=== PATIENT | female | born 1960 | race Caucasian/White ===

== ENCOUNTER 2019-02-14 09:59 | Emergency (ER) | payer MEDICAID ==
[~2019-02-14] VITALS: Wt 75.1 kg
[~2019-02-14 09:59] MED LIST: LOSA50TA14 PO; OMEP20CA16 PO; SIMV20TA PO
--- NOTE | 2019-02-14 10:54 | ERD ---
ER Documentation Chief Complaint Chief Complaint chemo pt with sob and dizziness and body pain for the past few days. HPI 58-year-old female with history of hypertension, hyperlipidemia and breast cancer presents to the ED with multiple complaints. She is concerned that during the course of the night her blood pressure was high. She has mild, gradual onset, generalized, pressure-like headache no visual changes, focal weakness or numbness. No neck or back pain. Dizziness which she describes as lightheadedness especially when she stands. Denies chest pain or palpitations. No abdominal pain, nausea, vomiting diarrhea or constipation. No dysuria, polyuria or flank pain. Generalized malaise and body aches but no fevers or chills. Her last chemotherapy was 9018. ROS All systems reviewed and are negative except as per history of present illness. Medications Home Meds Reported Medications Omeprazole* (Omeprazole*) 20 Mg Capsule.dr, 20 MG PO DAILY, #30 CAP 12/31/18 Losartan Potassium* (Losartan Potassium*) 50 Mg Tablet, 50 MG PO DAILY, TAB 12/31/18 Simvastatin* (Zocor*) 20 Mg Tablet, 20 MG PO QHS, #30 TAB 12/31/18 Allergies Allergies: Coded Allergies: No Known Allergy (Unverified , 02/14/19) PMhx/Soc Reviewed in chart. As per HPI. History of Surgery: Yes (C/ S X 2) Anesthesia Reaction: No Hx Neurological Disorder: No Hx Respiratory Disorders: No Hx Cardiac Disorders: Yes (HTN, HLP) Hx Psychiatric Problems: No Hx Miscellaneous Medical Probl: Yes (Breast cancer) Hx Alcohol Use: No Hx Substance Use: No Hx Tobacco Use: No FmHx No sudden cardiac or stroke Physical Exam Vitals Vital Signs Date Temp Pulse Resp B/P (MAP) Pulse Ox O2 O2 Flow FiO2 Time Delivery Rate 02/14/19 98.2 64 15 116/64 98 Room Air 14:57 (81) 02/14/19 72 18 132/60 98 Room Air 13:27 (84) 02/14/19 98.0 76 18 161/69 97 10:06 (99) Physical Exam Const: Alert, anxious Head: Atraumatic Eyes: Normal Conjunctiva. Pupils equal reactive light, extraocular wounds are intact ENT: Normal External Ears, Nose and Mouth. Mucous membranes are moist. No oral thrush. Neck: Full range of motion. No meningismus. No JVD. No lymphadenopathy or tenderness. Resp: Breath sounds are equal and clear to auscultation bilaterally. No rales rhonchi or wheezes. Cardio: Regular rate and rhythm, no murmurs Chest Wall: Port-A-Cath site nontender without erythema or induration. Abd: Soft, obese, non tender, non distended. No rebound or guarding. Normal bowel sounds Skin: No petechiae or rashes Back: No midline or flank tenderness Ext: No cyanosis, or edema Neur: Awake and alert Psych: Anxious but not depressed. Result Diagram: 02/14/19 1129 02/14/19 1129 Results 24 hrs Laboratory Tests Test 02/14/19 11:29 White Blood Count 3.5 10^3/ul Red Blood Count 3.45 10^6/ul Hemoglobin 9.7 g/dl Hematocrit 29.8 % Mean Corpuscular Volume 86.4 fl Mean Corpuscular Hemoglobin 28.1 pg Mean Corpuscular Hemoglobin Concent 32.6 g/dl Red Cell Distribution Width 15.8 % Platelet Count 222 10^3/UL Mean Platelet Volume 10.3 fl Immature Granulocytes % 1.400 % Neutrophils % % Segmented Neutrophils % (Manual) 37 % Band Neutrophils % (Manual) 5 % Lymphocytes % % Lymphocytes % (Manual) 49 % Reactive Lymphocytes % (Manual) 2 % Monocytes % % Monocytes % (Manual) 7 % Eosinophils % % Basophils % % Nucleated Red Blood Cells % 0.0 /100WBC Immature Granulocytes # 0.050 10^3/ul Neutrophils # 10^3/ul Neutrophils # (Manual) 1.3 10^3/ul Band Neutrophils # 0.1 10^3/ul Lymphocytes (Manual) 1.7 10^3/ul Lymphocytes # 10^3/ul Reactive Lymphocytes # 0.0 10^3/ul Monocytes # 10^3/ul Monocytes # (Manual) 0.2 10^3/ul Eosinophils # 10^3/ul Basophils # 10^3/ul Nucleated Red Blood Cells # 10^3/ul Platelet Estimate NORMAL Anisocytosis 1+ Microcytosis 1+ Urine Color STRAW Urine Clarity CLEAR Urine pH 6.0 Urine Specific [place] 1.002 Urine Ketones NEGATIVE mg/dL Urine Nitrite NEGATIVE mg/dL Urine Bilirubin NEGATIVE mg/dL Urine Urobilinogen NEGATIVE mg/dL Urine Leukocyte Esterase NEGATIVE Dahlia/ul Urine Hemoglobin NEGATIVE mg/dL Urine Glucose NEGATIVE mg/dL Urine Total Protein NEGATIVE mg/dl Sodium Level 143 mmol/L Potassium Level 4.1 mmol/L Chloride Level 109 mmol/L Carbon Dioxide Level 27 mmol/L Anion Gap 7 Blood Urea Nitrogen 5 mg/dl Creatinine 0.46 mg/dl Est Glomerular Filtrat Rate mL/min > 60 mL/min Glucose Level 93 mg/dl Calcium Level 9.2 mg/dl Total Bilirubin 0.4 mg/dl Direct Bilirubin 0.00 mg/dl Indirect Bilirubin 0.4 mg/dl Aspartate Amino Transf (AST/SGOT) 63 IU/L Alanine Aminotransferase (ALT/SGPT) 54 IU/L Alkaline Phosphatase 86 IU/L Total Protein 6.4 g/dl Albumin 3.5 g/dl Globulin 2.90 g/dl Albumin/Globulin Ratio 1.20 Procedures/MDM DOCUMENTS REVIEWED: ED nurse, prior records EKG: Time: 1426. Sinus rhythm. Ventricular rate 67, normal [place] and QRS intervals. No acute ST segment elevation or depression. No axis deviation or ectopy. My Interpretation: Normal EKG IMAGING: Chest AP portable. Cardiac silhouette is normal. The costophrenic angles are clear. No effusions or infiltrates. No abnormalities of the bony thorax. My interpretation. PROCEDURE: CT head CLINICAL INDICATION: Headache. History of breast cancer. TECHNIQUE: Contiguous 2.5 mm axial images were obtained from the vertex to the skull base. No intravenous contrast was administered. The calculated dose length product (DLP) = 554.95 mGy-cm. The CTDlvol = 39.54 mGy. One or more of the following dose reduction techniques were used: Automated exposure control, adjustment of the mA and or KV according to patient size, or use of iterative reconstruction technique. DICOM images are available. COMPARISON: None FINDINGS: There is no evidence of acute intracranial hemorrhage or acute territorial infarct. No mass or mass effect is seen on this noncontrast study. The ventricles and cisterns are normal in size and configuration. The patel-white matter differentiation is within normal limits. The visualized paranasal sinuses are normally aerated. The bony calvarium is unremarkable IMPRESSION: Unremarkable unenhanced CT of the brain RPTAT: .Demian Anne MD, MD Date Time Electronically viewed and signed by .Demian Anne MD, MD on 02/14/2019 11:23 .W/ MEDICAL DECISION MAKIN-year-old female with history of hypertension, hyperlipidemia and breast cancer presents to the ED with multiple complaints she is most concerned about her blood pressure was consistently high throughout the night. CBC reveals mild leukopenia and anemia but no thrombocytopenia. Chemistry is negative for renal insufficiency or electrolyte abnormalities. CT of the brain performed to evaluate for metastatic disease, mass, ischemia and hemorrhage is unremarkable. EKG is negative for ischemia or dysrhythmia. Sorted hypertension exacerbated by underlying anxiety resolved without treatment. No evidence of hypertensive urgency or emergency. No dehydration or electrolyte abnormalities. Mild gradual onset, non-maximal headache. History not consistent with meningitis, encephalitis or subarachnoid hemorrhage. CT of the brain is negative and lumbar puncture is not indicated. Stable for discharge with precautionary instructions and outpatient follow-up as counseled. Counseled patient and family regarding diagnostic workup, diagnosis and need for followup. Understands to return to ED if symptoms recur, worsen or any other concerns. Departure Diagnosis: Primary Impression: Multiple complaints Additional Impressions: Accelerated hypertension Breast cancer Breast location: unspecified site of breast Estrogen receptor status: unspecified Patient sex: female Laterality: right Qualified Codes: C50 .911 - Malignant neoplasm of unspecified site of right female breast Headache Headache type: unspecified Headache chronicity pattern: episodic headache Intractability: not intractable Qualified Codes: R51 - Headache Anxiety about health Condition: Stable (Improved) FAUSTO CARDENAS MD Feb 14, 2019 10:54
[2019-02-14 14:57] VITALS: BP 116/64; PULSE 64; RESP 15
== END 2019-02-14 14:58 | disposition home or self-care (01) ==
LOC: E/R 09:59
DX: I10 Essential (primary) hypertension (principal); C50.911 Malignant neoplasm of unspecified site of right female breast; R42 Dizziness and giddiness
CPT/HCPCS: 36415; 70450; 71045; 80053; 81003; 85025; 93005; Z7502

== ENCOUNTER 2019-02-22 05:24 | Emergency (ER) | payer MEDICAID ==
[~2019-02-22] VITALS: Ht 157.5 cm; Wt 71.2 kg
[2019-02-22 05:30] VITALS: Ht 157.5 cm; Wt 71.2 kg
[2019-02-22] MEDS ORDERED: morphine 4 MG/ML VIAL IV STA (06:48)
[2019-02-22] MEDS ORDERED: ONDANSETRON 4 MG INJ IV STA (06:48)
[2019-02-22] MEDS ORDERED: ONDA4TAB14 PO (09:00)
[2019-02-22] MEDS ORDERED: IBUP-1542 PO (09:00)
[2019-02-22 09:32] VITALS: BP 97/48; PULSE 64; RESP 16
--- NOTE | 2019-02-22 12:05 | ERD ---
ER Documentation Chief Complaint Chief Complaint RUQ pain; rectal bleed; breast CA HX; tx last friday HPI Patient is a 58-year-old female with breast cancer who presents with abdominal pain. She had a right upper quadrant abdominal pain which started yesterday. The pain comes and goes. The patient has no fevers. The patient tried Tylenol. The pain is been sharp in nature. The patient has no shortness of breath. Upon review of old medical records this is the patient's third visit to the ER since December 31, 2018. ROS All systems reviewed and are negative except as per history of present illness. Medications Home Meds Active Scripts Ondansetron (Ondansetron Odt) 4 Mg Tab.rapdis, 4 MG PO Q6H PRN for NAUSEA AND/OR VOMITING, #10 TAB Prov:MYRIAM RODRIGUEZ MD 02/22/19 Ibuprofen* (Motrin*) 600 Mg Tab, 600 MG PO Q6H PRN for PAIN AND OR ELEVATED TEMP , #30 TAB Prov:MYRIAM RODRIGUEZ MD 02/22/19 Reported Medications Omeprazole* (Omeprazole*) 20 Mg Capsule.dr, 20 MG PO DAILY, #30 CAP 12/31/18 Losartan Potassium* (Losartan Potassium*) 50 Mg Tablet, 50 MG PO DAILY, TAB 12/31/18 Simvastatin* (Zocor*) 20 Mg Tablet, 20 MG PO QHS, #30 TAB 12/31/18 Allergies Allergies: Coded Allergies: No Known Allergy (Unverified , 02/14/19) PMhx/Soc History of Surgery: Yes (C/ S X 2, PORT-A-CATH PLACEMENT) Anesthesia Reaction: No Hx Neurological Disorder: No Hx Respiratory Disorders: No Hx Cardiac Disorders: Yes (HTN, HLP) Hx Psychiatric Problems: No Hx Miscellaneous Medical Probl: Yes (Breast cancer) Hx Alcohol Use: No Hx Substance Use: No Hx Tobacco Use: No Smoking Status: Never smoker FmHx Family History: diabetes Physical Exam Vitals Vital Signs Date Temp Pulse Resp B/P (MAP) Pulse Ox O2 O2 Flow FiO2 Time Delivery Rate 02/22/19 64 16 97/48 (64) 100 Room Air 09:32 02/22/19 79 14 102/61 100 Room Air 08:00 (75) 02/22/19 76 14 139/67 100 Room Air 06:50 (91) 02/22/19 98.2 94 20 122/62 98 05:30 (82) Physical Exam Const: No acute distress Head: Atraumatic Eyes: Normal Conjunctiva ENT: Normal External Ears, Nose and Mouth. Neck: Full range of motion. No meningismus. Resp: Clear to auscultation bilaterally Cardio: Regular rate and rhythm, no murmurs Abd: Soft, right upper quadrant tenderness to palpation without rebound or guarding Skin: No petechiae or rashes Back: No midline or flank tenderness Ext: No cyanosis, or edema Neur: Awake and alert Psych: Normal Mood and Affect Result Diagram: 02/22/19 0802 02/22/19 0802 Results 24 hrs Laboratory Tests Test 02/22/19 07:34 02/22/19 08:02 Urine Color YELLOW Urine Clarity CLEAR Urine pH 7.0 Urine Specific [place] 1.010 Urine Ketones NEGATIVE mg/dL Urine Nitrite NEGATIVE mg/dL Urine Bilirubin NEGATIVE mg/dL Urine Urobilinogen NEGATIVE mg/dL Urine Leukocyte Esterase NEGATIVE Dahlia/ul Urine Microscopic RBC 1 /HPF Urine Microscopic WBC 4 /HPF Urine Squamous Epithelial Cells FEW /HPF Urine Bacteria FEW /HPF Urine Mucus FEW /HPF Urine Hemoglobin NEGATIVE mg/dL Urine Glucose NEGATIVE mg/dL Urine Total Protein NEGATIVE mg/dl White Blood Count 1.8 10^3/ul Red Blood Count 3.62 10^6/ul Hemoglobin 10.0 g/dl Hematocrit 31.3 % Mean Corpuscular Volume 86.5 fl Mean Corpuscular Hemoglobin 27.6 pg Mean Corpuscular Hemoglobin Concent 31.9 g/dl Red Cell Distribution Width 15.9 % Platelet Count 220 10^3/UL Mean Platelet Volume 10.4 fl Immature Granulocytes % 5.100 % Neutrophils % % Segmented Neutrophils % (Manual) 36 % Band Neutrophils % (Manual) 9 % Lymphocytes % % Lymphocytes % (Manual) 48 % Reactive Lymphocytes % (Manual) 3 % Monocytes % % Monocytes % (Manual) 3 % Eosinophils % % Basophils % % Basophils % (Manual) 1 % Nucleated Red Blood Cells % 0.0 /100WBC Immature Granulocytes # 0.090 10^3/ul Neutrophils # 10^3/ul Neutrophils # (Manual) 0.6 10^3/ul Band Neutrophils # 0.1 10^3/ul Lymphocytes (Manual) 0.8 10^3/ul Lymphocytes # 10^3/ul Reactive Lymphocytes # 0.0 10^3/ul Monocytes # 10^3/ul Monocytes # (Manual) 0.0 10^3/ul Eosinophils # 10^3/ul Basophils # 10^3/ul Basophils # (Manual) 0.0 10^3/ul Nucleated Red Blood Cells # 10^3/ul Platelet Estimate NORMAL Giant Platelets 1 % Anisocytosis 3+ Microcytosis 3+ Ovalocytes 1+ Stomatocytes 2+ Sodium Level 139 mmol/L Potassium Level 3.8 mmol/L Chloride Level 100 mmol/L Carbon Dioxide Level 32 mmol/L Anion Gap 7 Blood Urea Nitrogen 9 mg/dl Creatinine 0.58 mg/dl Est Glomerular Filtrat Rate mL/min > 60 mL/min Glucose Level 103 mg/dl Calcium Level 9.4 mg/dl Total Bilirubin 0.5 mg/dl Direct Bilirubin 0.00 mg/dl Indirect Bilirubin 0.5 mg/dl Aspartate Amino Transf (AST/SGOT) 37 IU/L Alanine Aminotransferase (ALT/SGPT) 73 IU/L Alkaline Phosphatase 99 IU/L Troponin I < 0.012 ng/ml Total Protein 6.8 g/dl Albumin 3.9 g/dl Globulin 2.90 g/dl Albumin/Globulin Ratio 1.34 Lipase 85 U/L Current Medications Medications Dose Sig/[place] Start Time Status Last (Trade) Ordered Route PRN Stop Time Admin Dose Reason Admin Morphine 4 mg ONCE STAT 02/22/19 DC 02/22/19 Sulfate IV 06:48 02/22/19 07:35 (morphine) 06:49 Ondansetron 4 mg ONCE STAT 02/22/19 DC 02/22/19 HCl (Zofran IV 06:48 02/22/19 07:35 Inj) 06:49 Procedures/MDM Ultrasound the gallbladder read by radiology. Patient is a 58-year-old female presents with right upper quadrant abdominal pain. Laboratory studies are basically normal. Ultrasound shows gallstones but no signs of cholecystitis. At this point I doubt cholecystitis, pancreatitis, appendicitis, or bowel obstruction. I believe outpatient management is appropriate but the patient will need to follow-up closely with her primary doctor within 24-48 hours. She can return sooner for any worsening symptoms. She was given copies of laboratory studies and imaging test prior to discharge. Departure Diagnosis: Primary Impression: Abdominal pain Abdominal location: right upper quadrant Qualified Codes: R10.11 - Right upper quadrant pain Condition: Fair Patient Instructions: Abdominal Pain, Biliary Colic With Gallstone (Confirmed) Additional Instructions: Specialist:Usted tiene yaya condicin mdica que requiere que alice a un especialista dentro de los prximos 1-2 vallejo.POR FAVOR,CON ASHLEY SEGUIMIENTO DE PRIMARIA PHSICIAN refferal. SI USTED NO TIENE UN MDICO GENERAL Y / O USTED NO PUEDE PAGAR nayeli a un mdico,los siguientes ramirez RECURSOS sido suministrado a usted. ES ASHLEY RESPONSABILIDAD PARA SER VISTOS POR EL ESPECIALISTA: MYRIAM RODRIGUEZ MD Feb 22, 2019 12:05
== END 2019-02-22 09:32 | disposition home or self-care (01) ==
LOC: E/R 05:24
DX: R10.31 Right lower quadrant pain (principal); I10 Essential (primary) hypertension; Z85.3 Personal history of malignant neoplasm of breast
CPT/HCPCS: 36415; 76705; 80053; 81003; 83690; 84484; 85025; 93005; 96374; 96375; J2270; J2405; Z7502